=== PATIENT | male | born 1945 | race Caucasian/White ===

== ENCOUNTER 2018-12-17 16:59 | Emergency (ER) | payer OTHER | END 2018-12-17 19:30 | disposition home or self-care (01) | LOC: FTE 16:59 | DX: B02.9 Zoster without complications (principal); E11.9 Type 2 diabetes mellitus without complications; I10 Essential (primary) hypertension; Z79.82 Long term (current) use of aspirin; Z87.891 Personal history of nicotine dependence | CPT/HCPCS: 99282 ==